=== PATIENT | female | born 1930 | race Caucasian/White ===

== ENCOUNTER 2017-08-18 09:15 | Inpatient (IN) | payer MEDICARE, BC ==
[~2017-08-18] VITALS: Ht 157.5 cm; Wt 54.2 kg
[~2017-08-18 09:15] MED LIST: ACET325 PO; ALBU90OI; ALBU90OI INH; ASPI325EC; ASPI81CH PO; BRIM.15SO; BRIM.15SO BOTHEYES; BRIM.15SO OD; CONEST.625; DIPATR PO; FAMO10 PO; FIBE4P; FURO20 PO; HALFPRIN PO; HYDACE5 PO; HYDCHL12.5 PO; HYDROCHLOROTHIAZIDE; KLOR-CON; LEVFLO500 PO; MAXZIDE; METO100ER PO; METO50 PO; MOME220I IH; MOMENI; MULVITMINF; MULVITMINF PO; NITR.4SL; NITR.4SL SL; OMEP20ER PO; POTA10T PO; POTASSIUM CHLORIDE; PROM25 PO; PYRI50; QUIN10 PO; SALM50IP; TELM20; TELM20 PO; TRAM50 PO; TRIHYD253A; TRIHYD5075 PO; Thera-M1 EACH PO
[2017-08-18 11:03] LABS: BASOPHILS ABSOLUTE AUTO 0.01 K/mm3 (0.00-0.23); BASOPHILS PERCENT AUTO 0 % (0-2); EOSINOPHILS PERCENT AUTO 0 % (0-6); Hematocrit 36.3 % (33.0-51.0); Hemoglobin 11.8 g/dL (11.5-16.0); IMMATURE GRAN ABSOLUTE AUTO 0.06 K/mm3 (0.00-0.10); IMMATURE GRAN PERCENT AUTO 1 % (0-1); LYMPHOCYTES ABSOLUTE AUTO 0.34 K/mm3 (0.84-5.20); LYMPHOCYTES PERCENT AUTO 3 % (21-46); MONOCYTES ABSOLUTE AUTO 0.24 K/mm3 (0.16-1.47); MONOCYTES PERCENT AUTO 2 % (4-13); Mean Corpuscular HGB 30.3 pg (26.0-34.0); Mean Corpuscular HGB Conc 32.5 g/dL (31.5-36.5); Mean Corpuscular Volume 93 fL (80-100); Mean Platelet Volume 10.5 fL (9.1-12.4); NEUTROPHILS ABSOLUTE AUTO 12.58 K/mm3 (1.96-9.15); NEUTROPHILS PERCENT AUTO 95 % (41-73); Platelet Count 187 K/mm3 (150-400); RDW Coefficient Variation 13.7 % (11.7-14.2); RDW Standard Deviation 46.5 fL (35.1-46.3); White Blood Cell Count 13.23 K/mm3 (4.00-11.30)
[2017-08-18 11:18] LABS: International Normalized Ratio 1.03; Prothrombin Time Results 10.7 Sec (9.7-11.5)
[2017-08-18 11:23] LABS: Albumin, Blood 2.9 g/dL (3.4-5.0); Albumin/Globulin Ratio 0.8 (0.8-1.8); Bilirubin, Total 0.7 mg/dL (0.1-1.0); Bun/Creatinine Ratio 25.7 (12.0-20.0); Calcium, Blood 8.6 mg/dL (8.5-10.1); Creatinine, Blood 0.93 mg/dL (0.40-1.00); Globulin, Blood 3.8 g/dL (2.2-4.0); Total Protein, Blood 6.7 g/dL (6.4-8.2)
[2017-08-18] MEDS ORDERED: Alphagan P5 ML BOTHEYES (14:45)
[2017-08-20 05:56] LABS: CHOL/HDL RATIO 3.4; Cholesterol 163 mg/dL (50-200); HDL Cholesterol 48 mg/dL (>39); LDL/HDL RATIO 1.9; Low Density Lipoprotein Chol 92 mg/dL (0-110); Triglycerides 115 mg/dL (30-160); Very Low Density Lipoprot Chol 23 mg/dL (6-32)
[2017-08-22 05:29] LABS: BASOPHILS ABSOLUTE AUTO 0.02 K/mm3 (0.00-0.23); BASOPHILS PERCENT AUTO 0 % (0-2); EOSINOPHILS ABSOLUTE AUTO 0.21 K/mm3 (0.00-0.68); EOSINOPHILS PERCENT AUTO 2 % (0-6); Hematocrit 32.1 % (33.0-51.0); Hemoglobin 10.6 g/dL (11.5-16.0); IMMATURE GRAN ABSOLUTE AUTO 0.03 K/mm3 (0.00-0.10); IMMATURE GRAN PERCENT AUTO 0 % (0-1); LYMPHOCYTES ABSOLUTE AUTO 2.17 K/mm3 (0.84-5.20); LYMPHOCYTES PERCENT AUTO 25 % (21-46); MONOCYTES ABSOLUTE AUTO 0.62 K/mm3 (0.16-1.47); MONOCYTES PERCENT AUTO 7 % (4-13); Mean Corpuscular HGB 30.4 pg (26.0-34.0); Mean Corpuscular Volume 92 fL (80-100); Mean Platelet Volume 9.8 fL (9.1-12.4); NEUTROPHILS ABSOLUTE AUTO 5.63 K/mm3 (1.96-9.15); NEUTROPHILS PERCENT AUTO 65 % (41-73); Platelet Count 250 K/mm3 (150-400); RDW Coefficient Variation 13.4 % (11.7-14.2); RDW Standard Deviation 44.9 fL (35.1-46.3); Red Blood Cell Count 3.49 M/mm3 (3.80-5.20); White Blood Cell Count 8.68 K/mm3 (4.00-11.30)
[2017-08-22 05:57] LABS: Bun/Creatinine Ratio 16.6 (12.0-20.0); Calcium, Blood 8.3 mg/dL (8.5-10.1); Creatinine, Blood 0.97 mg/dL (0.40-1.00)
== END 2017-08-23 13:54 | DRG 64 ==
LOC: ER 09:15 → MEDS 09:16 → ENPENDDIS 08-23 12:00 → MEDS 08-23 13:54
PROVIDERS: Emergency Medicine; Internal Medicine
PROC: 3E0234Z Introduction of Serum, Toxoid and Vaccine into Muscle, Percutaneous Approach (ICD-10-PCS; principal; 2017-08-18)
DX: I63.9 Cerebral infarction, unspecified (principal); S06.339A Contusion and laceration of cerebrum, unspecified, with loss of consciousness of unspecified duration, initial encounter; G81.94 Hemiplegia, unspecified affecting left nondominant side; F03.90 Unspecified dementia, unspecified severity, without behavioral disturbance, psychotic disturbance, mood disturbance, and anxiety; S11.91XA Laceration without foreign body of unspecified part of neck, initial encounter; J45.909 Unspecified asthma, uncomplicated; S01.91XA Laceration without foreign body of unspecified part of head, initial encounter; S81.819A Laceration without foreign body, unspecified lower leg, initial encounter; I10 Essential (primary) hypertension; I25.9 Chronic ischemic heart disease, unspecified; I35.0 Nonrheumatic aortic (valve) stenosis; Z23 Encounter for immunization; Z87.11 Personal history of peptic ulcer disease; J32.9 Chronic sinusitis, unspecified; I25.10 Atherosclerotic heart disease of native coronary artery without angina pectoris; S70.00XA Contusion of unspecified hip, initial encounter; R47.81 Slurred speech; R29.810 Facial weakness; R47.1 Dysarthria and anarthria; R32 Unspecified urinary incontinence
CPT/HCPCS: 12002; 36415; 70450; 70551; 71045; 72125; 72170; 72192; 73552; 80048; 80053; 80061; 81000; 85025; 85610; 85730; 90471; 90714; 92526; 92610; 93005; 93010; 93880; 96374; 97110; 97116; 97162; 97530; 99284; 99285; G8978; G8979; G8996; G8997; J1650; J3010; P9612

== ENCOUNTER 2018-01-11 11:27 | Inpatient (IN) | payer MEDICARE, BC ==
[~2018-01-11] VITALS: Ht 162.6 cm; Wt 53.0 kg
[~2018-01-11 11:27] MED LIST changes: +Alphagan P5 ML BOTHEYES
[2018-01-11 12:21] LABS: BASOPHILS ABSOLUTE AUTO 0.03 K/mm3 (0.00-0.23); BASOPHILS PERCENT AUTO 0 % (0-2); EOSINOPHILS ABSOLUTE AUTO 0.11 K/mm3 (0.00-0.68); EOSINOPHILS PERCENT AUTO 1 % (0-6); Hematocrit 38.7 % (33.0-51.0); Hemoglobin 12.5 g/dL (11.5-16.0); IMMATURE GRAN ABSOLUTE AUTO 0.04 K/mm3 (0.00-0.10); IMMATURE GRAN PERCENT AUTO 0 % (0-1); LYMPHOCYTES ABSOLUTE AUTO 1.36 K/mm3 (0.84-5.20); LYMPHOCYTES PERCENT AUTO 12 % (21-46); MONOCYTES ABSOLUTE AUTO 0.62 K/mm3 (0.16-1.47); MONOCYTES PERCENT AUTO 6 % (4-13); Mean Corpuscular HGB 30.2 pg (26.0-34.0); Mean Corpuscular HGB Conc 32.3 g/dL (31.5-36.5); Mean Corpuscular Volume 94 fL (80-100); NEUTROPHILS ABSOLUTE AUTO 8.94 K/mm3 (1.96-9.15); NEUTROPHILS PERCENT AUTO 80 % (41-73); RDW Standard Deviation 48.3 fL (35.1-46.3); Red Blood Cell Count 4.14 M/mm3 (3.80-5.20)
[2018-01-11 12:33] LABS: Alanine Aminotransfer (ALT/SGP 18 U/L (12-78); Albumin/Globulin Ratio 0.7 (0.8-1.8); Alk Phos 101 U/L (50-136); Anion Gap 11 mmol/L (6-16); Aspartate Aminotrans (AST/SGOT 24 U/L (12-37); Bilirubin, Total 0.6 mg/dL (0.1-1.0); Blood Urea Nitrogen 19 mg/dL (8-24); Bun/Creatinine Ratio 18.4 (12.0-20.0); CO2, Blood 24 mmol/L (21-32); Calcium, Blood 8.6 mg/dL (8.5-10.1); Chloride, Blood 112 mmol/L (98-108); Creatinine, Blood 1.03 mg/dL (0.40-1.00); Globulin, Blood 4.6 g/dL (2.2-4.0); Glomerular Filtration Rate 54 (60-); Glucose, Blood 143 mg/dL (70-99); Potassium, Blood 3.5 mmol/L (3.5-5.5); Sodium, Blood 147 mmol/L (136-145); Total Protein, Blood 7.6 g/dL (6.4-8.2); Troponin I <0.015 ng/mL (0.000-0.040)
[2018-01-11 12:40] LABS: Mean Platelet Volume 9.3 fL (9.1-12.4); Platelet Count 290 K/mm3 (150-400)
[2018-01-11 14:13] LABS: Prothrombin Time Results 10.3 Sec (9.7-11.5)
[2018-01-11] MEDS ORDERED: [UNRECOGNIZED DRUG - CODE] PO (18:06)
[2018-01-11] MEDS ORDERED: [UNRECOGNIZED DRUG - CODE] PO (18:07)
[2018-01-12] MEDS ORDERED: DONE10 PO (13:08)
[2018-01-12] MEDS ORDERED: MIRT15 PO (13:09)
[2018-01-12] MEDS ORDERED: CLOP75 PO (13:10)
[2018-01-12] MEDS ORDERED: LISI5 PO (13:12)
[2018-01-13 07:49] LABS: Bun/Creatinine Ratio 18.4 (12.0-20.0); Calcium, Blood 8.2 mg/dL (8.5-10.1); Creatinine, Blood 1.03 mg/dL (0.40-1.00); Potassium, Blood 3.5 mmol/L (3.5-5.5)
[2018-01-14] MEDS ORDERED: Nitroglycerin0.4 MG SL (08:45)
[2018-01-14] MEDS ORDERED: XARELTO15 MG PO (08:46)
== END 2018-01-14 17:36 | disposition home or self-care (01) | DRG 299 ==
LOC: ER 11:27 → MEDS 11:28 → ENPENDDIS 01-14 10:00 → MEDS 01-14 17:36
PROVIDERS: Emergency Medicine; Internal Medicine
DX: I82.402 Acute embolism and thrombosis of unspecified deep veins of left lower extremity (principal); I26.99 Other pulmonary embolism without acute cor pulmonale; Z86.73 Personal history of transient ischemic attack (TIA), and cerebral infarction without residual deficits; J44.9 Chronic obstructive pulmonary disease, unspecified; Z79.01 Long term (current) use of anticoagulants; I35.0 Nonrheumatic aortic (valve) stenosis; Z85.3 Personal history of malignant neoplasm of breast; Z92.3 Personal history of irradiation; G89.29 Other chronic pain; F03.90 Unspecified dementia, unspecified severity, without behavioral disturbance, psychotic disturbance, mood disturbance, and anxiety; I10 Essential (primary) hypertension; E78.5 Hyperlipidemia, unspecified; I25.9 Chronic ischemic heart disease, unspecified; H91.90 Unspecified hearing loss, unspecified ear; I73.9 Peripheral vascular disease, unspecified; G62.9 Polyneuropathy, unspecified; Z66 Do not resuscitate; R09.02 Hypoxemia; H40.9 Unspecified glaucoma; F32.9 Major depressive disorder, single episode, unspecified
CPT/HCPCS: 36415; 71046; 71260; 80048; 80053; 83880; 84484; 85025; 85379; 85610; 85730; 93005; 93010; 93971; 99285; J1644; Q9967